=== PATIENT | female | born 1975 | race African-American/Black ===

== ENCOUNTER 2025-07-12 16:12 | Emergency (ER) | payer MEDICAID ==
[~2025-07-12] VITALS: Ht 175.3 cm; Wt 86.0 kg
[2025-07-12 16:26] VITALS: O2SAT 97
[2025-07-12 17:33] LABS: BASOPHILS % 1.7 % (0.0-2.0); EOSINOPHILS % 1.0 % (0.0-5.0); HEMATOCRIT. 36.8 % (36.0-48.0); HEMOGLOBIN. 11.6 g/dL (12.0-16.0); LYMPHOCYTES % 32.4 % (20.0-50.0); MONOCYTES % 7.0 % (2.0-8.0); NEUTROPHILS % 57.9 % (40.0-76.0); RED BLOOD CELL COUNT 4.36 mill/uL (4.2-5.4); RED CELL DISTRIBUTION WIDTH 14.8 % (11.6-14.6)
[2025-07-12 17:47] LABS: CREATININE 0.7 mg/dL (0.6-1.0); ETHANOL BLOOD < 10 mg/dL (<10); UREA NITROGEN BLOOD 9 mg/dL (9-23)
[2025-07-12 17:51] LABS: HCG SCREEN NEGATIVE
[2025-07-12 18:19] LABS: MEAN PLATELET VOLUME 9.5 fl (7.4-10.4)
[2025-07-12 18:21] LABS: PLATELET 194 x1000/uL (130-400)
[2025-07-12 19:01] LABS: *AMPHETAMINES SCREEN URINE NEGATIVE (NEGATIVE); *BARBITURATES SCREEN URINE NEGATIVE (NEGATIVE); *BENZODIAZEPINES SCREEN URINE NEGATIVE (NEGATIVE); *COCAINE SCREEN URINE NEGATIVE (NEGATIVE); CANNABINOID URINE SCREEN NEGATIVE (NEGATIVE); METHADONE URINE SCREEN NEGATIVE (NEGATIVE); OPIATES URINE SCREEN NEGATIVE (NEGATIVE); PHENCYCLIDINE URINE SCREEN PRESUMTIVE POSITIVE (NEGATIVE)
[2025-07-12 19:02] LABS: ECSTASY MDMA SCREEN URINE NEGATIVE (NEGATIVE)
[2025-07-13] MEDS: POTASSIUM CHLORIDE 20MEQ/PACKET PO NR (01:13)
[2025-07-13] MEDS: OLANZAPINE 5MG TABLET PO SCH (10:32)
[2025-07-13 13:19] VITALS: BP 129/82; PULSE 85; RESP 18; TEMP 36.6; O2SAT 100
== END 2025-07-13 13:14 ==
LOC: EDBD 16:12 → ER 16:12
DX: R45.851 Suicidal ideations (principal); F20.9 Schizophrenia, unspecified; F32.A Depression, unspecified; Z20.822 Contact with and (suspected) exposure to COVID-19; Z79.899 Other long term (current) drug therapy
CPT/HCPCS: 36415; 80048; 80305; 80307; 80320; 80329; 84703; 85025; 87426; 99285; G0480